=== PATIENT | female | born 1960 | race Caucasian/White ===

== ENCOUNTER 2023-11-20 17:45 | Emergency (ER) | payer MEDICARE, OTHER, SELFPAY ==
[2023-11-20 17:46] VITALS: BP 179/107; BMI 22.7
[2023-11-20 18:24] LABS: % Basophils 0.3 % (0-2); % Eosinophils 3.2 % (0-6); % Immature Granulocytes 0.2 % (0-0.5); % Lymphocytes 39.2 % (20.5-51.1); % Monocytes 6.1 % (1.7-9.3); Absolute Eosinophils 0.3 10^3/uL (0-0.7); Absolute Lymphocytes 3.5 10^3/uL (1.2-3.4); Absolute Monocytes 0.5 10^3/uL (0.1-0.6); Absolute Neutrophils 4.5 10^3/uL (1.4-6.5); Hemoglobin 12.5 g/dL (12.0-16.0); Mean Corp Hgb Conc. 34.7 g/dL (33.0-37.0); Mean Corpuscular Hgb 28.4 pg (27.0-31.0); Mean Corpuscular Volume 81.8 fL (81.0-99.0); Mean Platelet Volume 8.9 fL (7.4-10.4); Nucleated Red Blood Cells % 0 %; Platelet Count 354 10^3/uL (130-400); Red Cell Dist. Width 12.9 % (11.5-14.5); White Blood Cell Count 8.8 10^3/uL (4.8-10.8)
[2023-11-20 18:38] LABS: ALT (SGPT) 34 U/L (0-35); AST (SGOT) 38 U/L (14-36); Albumin 4.6 g/dl (3.5-5.0); Alkaline Phosphatase 86 U/L (38-126); Blood Urea Nitrogen 26 mg/dl (7-17); Calcium 9.9 mg/dl (8.4-10.2); Carbon Dioxide 25 mmol/L (22-30); Chloride 104 mmol/L (98-107); Estimated Creatinine Clearance 71 ml/min; Glucose 106 mg/dl (70-99); Potassium 3.6 mmol/L (3.5-5.1); Sodium 139 mmol/L (135-145); Total Bilirubin 0.5 mg/dl (0.2-1.3); Total Protein 7.4 g/dl (6.3-8.2); eGFR > 60.00
--- NOTE | 2023-11-20 18:42 | ED.GENMED ---
History of Present Illness
<Faizan Lundberg, DO - Last Filed: 11/20/23 22:15>
General
Chief Complaint: Chest Pain
Source: patient
Exam Limitations: none
Time Seen by Provider: 11/20/23 18:36
History of Present Illness
History of Present Illness:
See MDM
Past History
<Faizan Lundberg, DO - Last Filed: 11/20/23 22:15>
Past History
ED Past Medical History: Asthma
ED Past Surgical History: None
Social History
Tobacco: Non-smoker
Alcohol: Occasional
Personal:
Living: with family
Employment: Employed
Family History
Family History: Negative CAD or Sudden
Phy Exam
<Faizan Lundberg, DO - Last Filed: 11/20/23 22:15>
Physical Exam
Physical Exam:
See MDM
Scores
<Faizan Lundberg, DO - Last Filed: 11/20/23 22:15>
Heart Score for Chest Pain Patients
STEMI patient?: No
History: Slightly or Non-Suspicious
ECG: Normal
Age: >/= 65 years
Risk Factors: No Risk Factors
Troponin: </= Normal Limit
Heart Score for Chest Pain Patients: 2
Heart Score Risk: 2.5% MACE over next 6 weeks
<Rolando Lo, DO - Last Filed: 11/20/23 22:36>
Heart Score for Chest Pain Patients
Heart Score for Chest Pain Patients: 2
Heart Score Risk: 2.5% MACE over next 6 weeks
Course
<Faizan Lundberg, DO - Last Filed: 11/20/23 22:15>
Orders/Labs/Results
Orders:
Orders
11/20/23 17:45
Electrocardiogram (*1) Urgent
Reason for Study: Chest Pain
EKG- Treatment ONCE
11/20/23 18:17
Complete Blood Count/With Diff Urgent
Comprehensive Metabolic Panel Urgent
Troponin I Urgent
11/20/23 18:50
D-Dimer Urgent
11/20/23 20:22
CT Chest Pe Study Urgent
Comment:
Reason For Exam: Chest pain, tachycardic, SOB
Abnormal Lab Results
11/20/23 11/20/23
18:17 18:50
Hct 36.0 L %
(37.0-47.0)
Absolute Lymphs (auto) 3.5 H 10^3/uL
(1.2-3.4)
D-Dimer 0.91 H ug/mlFEU
(0.00-0.50)
BUN 26 H mg/dl
(7-17)
Glucose 106 H mg/dl
(70-99)
AST 38 H U/L
(14-36)
11/20/23 18:17
11/20/23 18:17
Vital Signs
Initial and Last Documented VS:
Initial Vital Signs
Temp Pulse Resp BP Pulse Ox
98 F 107 16 179/107 99
11/20/23 17:46 11/20/23 17:46 11/20/23 17:46 11/20/23 17:46 11/20/23 17:46
Last Documented Vital Signs
Temp Pulse Resp BP Pulse Ox
98 F 83 14 169/79 98
11/20/23 17:46 11/20/23 21:45 11/20/23 21:45 11/20/23 19:00 11/20/23 21:45
Jakylt;Rolando Lo, DO - Last Filed: 11/20/23 22:36>
Orders/Labs/Results
Orders:
Orders
11/20/23 17:45
Electrocardiogram (*1) Urgent
Reason for Study: Chest Pain
EKG- Treatment ONCE
11/20/23 18:17
Complete Blood Count/With Diff Urgent
Comprehensive Metabolic Panel Urgent
Troponin I Urgent
11/20/23 18:50
D-Dimer Urgent
11/20/23 20:22
CT Chest Pe Study Urgent
Comment:
Reason For Exam: Chest pain, tachycardic, SOB
Abnormal Lab Results
11/20/23 11/20/23
18:17 18:50
Hct 36.0 L %
(37.0-47.0)
Absolute Lymphs (auto) 3.5 H 10^3/uL
(1.2-3.4)
D-Dimer 0.91 H ug/mlFEU
(0.00-0.50)
BUN 26 H mg/dl
(7-17)
Glucose 106 H mg/dl
(70-99)
AST 38 H U/L
(14-36)
11/20/23 18:17
11/20/23 18:17
Vital Signs
Initial and Last Documented VS:
Initial Vital Signs
Temp Pulse Resp BP Pulse Ox
98 F 107 16 179/107 99
11/20/23 17:46 11/20/23 17:46 11/20/23 17:46 11/20/23 17:46 11/20/23 17:46
Last Documented Vital Signs
Temp Pulse Resp BP Pulse Ox
98 F 83 14 169/79 98
11/20/23 17:46 11/20/23 21:45 11/20/23 21:45 11/20/23 19:00 11/20/23 21:45
<Faizan Lundberg, DO - Last Filed: 11/20/23 22:15>
MDM/Problems Addressed
Differential Diagnosis Includes:
HPI and MDM Narrative:
63-year-old female presenting with intermittent left-sided chest pain. Patient states it started yesterday. It is not worse with exertion, food intake or position. She states it happens approximately 4 times an hour and last for only a second or
2. Denies significant prior medical history. She states it sometimes hurts when she takes a deep breath similar to bronchitis but states not as bad.
Heart rate shows mild tachycardia but she is clinically dehydrated. Patient acknowledges that she does not drink much water.
Given complaint and mild tachycardia, will obtain D-dimer. Given nonexertional symptoms, doubt ACS but will obtain troponin
Physical exam
General: Well appearing and non-toxic
HEENT: protecting airway. Dry mucous
Neck: appears supple
CV: No evidence of cyanosis. Mild tachycardia
Resp: No accessory muscle use. Lungs clear
Abd: Non-distended
Extremities: No deformities. No unilateral leg edema or erythema
Neuro: alert
Psych: Normal affect
Skin: Intact
Problems Addressed including Acute and Chronic Conditions affecting care:
1. Intermittent chest pain
Acuity: acute
Prognosis: stable
Details: Given nonexertional symptoms, doubt ACS. Given intermittent nature, doubt PE. Will obtain troponin and D-dimer.
Updates
Troponin negative. However, D-dimer elevated. Will obtain CT PE rule out
Differential Diagnosis (but not limited to): Musculoskeletal pain, esophageal spasm, noncardiac chest pain, pleurisy
Testing considered: Chest x-ray but will assess for D-dimer first
Drug therapy (if applicable): OTC meds, please see d/c instruction regarding Rx drugs
Amount and/or Complexity of Data Reviewed
Clinical info obtained from: Patient
External data reviewed: N/A
Labs I independently reviewed (but not limited to): Troponin and D-dimer
Radiology: The CT scan was personally and independently reviewed. In addition, official CT report reviewed.
Pulse Ox: not hypoxic
EKG independently reviewed: Sinus tachycardia, normal axis, no STEMI
Mini Shifter: Sinus rhythm
Critical Care: N/A
Risk of Complication:
Social Determinants of health: Good social support
Discussed with other providers: N/A
Escalation of Care includes Admit/Obs: After being observed in the Emergency Department, pt stable for discharge.
Occasional wrong word or 'sound a like' substitutions may have occurred due to the inherent limitations of voice recognition software. Read the chart carefully and recognize, using context, where substitutions have occurred.
<Faizan Lundberg, DO - Last Filed: 11/20/23 22:15>
*Critical Care Note
Total Time (30-74mins, 75-104mins- exclusive of procedures): Not Applicable
<Rolando Lo, DO - Last Filed: 11/20/23 22:36>
Update Note
Update Note:
IMPRESSION:
No evidence of pulmonary embolism.
No active pulmonary disease.
Incidental asymmetric enlargement of left lobe of the thyroid gland with mild rightward deviation of the trachea. No tracheal compression. Recommend follow-up nonemergent ultrasound.
Electronically signed by Joseph Camargo MD, 11/20/2023 10:26 PM
ED Attending Note
<Faizan Lundberg, DO - Last Filed: 11/20/23 22:15>
-
Portions of this chart may have been created with voice recognition software.� Occasional wrong word or��sound alike� substitutions may have occurred due to the inherent limitations of voice recognition software.
Discharge Plan
Departure
Patient Disposition: Home (Routine Discharge)
Date of Disposition: 11/20/23
Time of Disposition: 22:12
Patient with high blood pressure during this ER visit?: Yes
Discharge Problem:
Chest pain
Instructions: Chest Pain DCA Follow Up, BLOOD PRESSURE
Prescriptions:
No Action
Albuterol Sulfate Hfa
1 - 2 puff inhalation Q4H PRN (Reason: sob)
Symbicort Inhaler:
1 puff inhalation DAILY
cephalexin 500 MG capsule
500 mg PO TID Qty: 21 0RF
Referrals:
Louie Merlos MD [Family Provider] -
Zach Nunez MD [Active] -
Activity Restrictions/Additional Instructions:
Please return for any worsening symptoms.
You may return at any time if you have further concerns.
Please follow up with your doctor at the first available appointment, preferably this week. Please discuss your symptoms and your elevated blood pressure.
Please discuss with your family doctor the results of the CAT scan and the recommended follow-up ultrasound.
You were placed on the cardiac callback tracker. Someone from their office should call you in the next few days. If you do not hear from them in the next few days, please give them a call.
Thank you for choosing [facility].
Interventions
Interventions:
*Risk Screen - Suicide Last Done: 11/20/23 17:46
*Neglect/Abuse Screening Last Done: 11/20/23 17:46
ED- Fall Risk Assessment Last Done: 11/20/23 17:46
Discharge Date and Time
Print Language: ARABIC
[2023-11-20 18:48] LABS: Troponin I < 0.012 ng/ml
[2023-11-20 19:00] VITALS: BP 169/79
[2023-11-20 20:00] LABS: D-Dimer 0.91 ug/mlFEU (0.00-0.50)
== END 2023-11-20 22:47 | disposition home or self-care (01) ==
LOC: EMR 17:45
PROVIDERS: EMERGENCY PHYSICIAN Student in an Organized Health Care Education/Training Program; FAMILY PHYSICIAN Family Medicine
DX: R07.89 Other chest pain (principal); R00.0 Tachycardia, unspecified; R03.0 Elevated blood-pressure reading, without diagnosis of hypertension; R93.89 Abnormal findings on diagnostic imaging of other specified body structures; J45.909 Unspecified asthma, uncomplicated; E86.0 Dehydration; Z88.1 Allergy status to other antibiotic agents
CPT/HCPCS: 99285; 71275; 80053; 84484; 85025; 85379; 93005; Q9967

== ENCOUNTER → 2023-11-30 15:34 | Outpatient (REF) | payer MEDICARE, OTHER, SELFPAY | LOC: WDC 15:34 | PROVIDERS: ATTENDING PHYSICIAN Family Medicine | DX: Z12.31 Encounter for screening mammogram for malignant neoplasm of breast (principal) | CPT/HCPCS: 77063; 77067 ==

== ENCOUNTER → 2023-12-27 15:02 | Outpatient (REF) | payer MEDICARE, OTHER, SELFPAY | LOC: RAD 15:02 | PROVIDERS: ATTENDING PHYSICIAN Family Medicine; FAMILY PHYSICIAN Family Medicine | DX: E04.9 Nontoxic goiter, unspecified (principal) | CPT/HCPCS: 76536 ==

== ENCOUNTER → 2024-01-18 09:30 | Outpatient (REF) | payer MEDICARE, OTHER, SELFPAY ==
[2024-01-18 09:49] VITALS: BP 145/67; BP_SYST 112
== END ==
LOC: RADI 09:30
PROVIDERS: ATTENDING PHYSICIAN Family Medicine; FAMILY PHYSICIAN Family Medicine
DX: E04.1 Nontoxic single thyroid nodule (principal)
CPT/HCPCS: 88173; 10005

== ENCOUNTER → 2024-06-14 06:46 | Outpatient (REF) | payer MEDICARE, OTHER, SELFPAY | LOC: RAD 06:46 | PROVIDERS: ATTENDING PHYSICIAN Nurse Practitioner Family | DX: E04.1 Nontoxic single thyroid nodule (principal); E05.90 Thyrotoxicosis, unspecified without thyrotoxic crisis or storm | CPT/HCPCS: 78012; A9516 ==

== ENCOUNTER → 2024-06-21 08:19 | Outpatient (REF) | payer MEDICARE, SELFPAY | LOC: RAD 08:19 | PROVIDERS: ATTENDING PHYSICIAN Nurse Practitioner Family; FAMILY PHYSICIAN Family Medicine | DX: E05.90 Thyrotoxicosis, unspecified without thyrotoxic crisis or storm (principal); Z13.820 Encounter for screening for osteoporosis; Z91.89 Other specified personal risk factors, not elsewhere classified; M81.0 Age-related osteoporosis without current pathological fracture | CPT/HCPCS: 77080 ==

== ENCOUNTER 2024-09-11 06:00 | Day surgery (SDC) | payer MEDICARE, SELFPAY ==
[2024-08-31 09:29] LABS: Hematocrit 35.8 % (37.0-47.0); Hemoglobin 12.1 g/dL (12.0-16.0); Mean Corp Hgb Conc. 33.8 g/dL (33.0-37.0); Mean Corpuscular Hgb 29.2 pg (27.0-31.0); Mean Corpuscular Volume 86.5 fL (81.0-99.0); Mean Platelet Volume 9.4 fL (7.4-10.4); Platelet Count 322 10^3/uL (130-400); Red Blood Cell Count 4.14 10^6/uL (4.20-5.40); Red Cell Dist. Width 13.3 % (11.5-14.5); White Blood Cell Count 6.8 10^3/uL (4.8-10.8)
[2024-08-31 09:44] LABS: INR 0.87; PT 12.2 Sec (11.4-14.6)
[2024-08-31 09:45] LABS: APTT 25.2 Sec (23.4-35.0)
[2024-08-31 09:56] LABS: ALT (SGPT) 33 U/L (0-35); AST (SGOT) 32 U/L (14-36); Albumin 4.2 g/dl (3.5-5.0); Alkaline Phosphatase 54 U/L (38-126); Blood Urea Nitrogen 28 mg/dl (7-17); Calcium 10.4 mg/dl (8.4-10.2); Carbon Dioxide 27 mmol/L (22-30); Chloride 104 mmol/L (98-107); Glucose 95 mg/dl (70-99); Potassium 4.7 mmol/L (3.5-5.1); Sodium 140 mmol/L (135-145); Total Bilirubin 0.6 mg/dl (0.2-1.3); Total Protein 7.1 g/dl (6.3-8.2); eGFR > 60.00
[2024-08-31 14:04] VITALS: BMI 19.3
[2024-09-11] VITALS (8 sets, daily range): BP systolic 109–148; BP diastolic 42–76; BMI 19.3
[2024-09-11] MEDS: TYLENOL 1000 MG PO (07:05)
[2024-09-11] MEDS: HEPARIN 5000 UNITS SC (07:06)
[2024-09-11] MEDS: NEURONTIN 300 MG PO (07:06)
[2024-09-11] MEDS: NORMOSOL-R/PLASMALYTE-A 1000 IV (07:08)
--- NOTE | 2024-09-11 12:30 | OR.RPT ---
Operative Report
Operative Report
DATE OF OPERATION: September 11, 2024
PREOPERATIVE DIAGNOSIS: Left thyroid toxic nodule w/o crisis - E0510
POSTOPERATIVE DIAGNOSIS: Same
SURGEON: Yovani Garrett M.D.
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
ANESTHESIA: GET
ESTIMATED BLOOD LOSS: 1 cc
DRAINS: None
SPECIMEN: left total thyroid lobe and isthmus
FINDINGS: Left substernal goiter
COMPLICATIONS: None
PROCEDURE:
The patient was taken to the operating room and placed in the usual supine position. After adequate general endotracheal anesthesia was established, the patient�s neck was extended, prepped, and draped in the typical sterile fashion. A 4 cm
transcervical incision was made two fingerbreadths above the sternal notch. The skin incision was made with the #15 blade, which was taken through the skin into the subcutaneous tissue. The underlying platysma muscle was divided, and subplatysmal
flaps were created superiorly to the thyroid cartilage and inferiorly to the sternal notch. Strap muscles were identified and at the midline.
Attention was turned to the patient�s left thyroid lobe. The left thyroid lobe was mobilized medially. During this process, the left middle thyroid vein and inferior thyroid artery were dissected and ligated with Ligasure. There was a substernal
extension, which was delivered out of the mediastinum through the cervical incision. Next, the left superior pole was taken down by dissecting and transecting the superior pole vessels with a Ligasure. The left thyroid lobe was mobilized medially.
During this process, the left recurrent laryngeal nerve was identified and preserved throughout its entire course. The left superior parathyroid gland was identified and preserved. The left thyroid lobe with isthmus was resected off the trachea and
sent to the pathology department.
After obtaining adequate hemostasis, the strap muscle was approximated with #3-0 Vicryl in a running fashion, and the platysma muscles were reapproximated with #3-0 Vicryl in an interrupted fashion, and the skin was approximated with #4-0 Monocryl
in a running subcuticular fashion. Steri-strips and sterile dressings were placed. The patient tolerated the procedure well. The final instrument, needle, and sponge counts were correct.
== END 2024-09-11 11:20 | disposition home or self-care (01) ==
LOC: SDS 06:00
PROVIDERS: ATTENDING PHYSICIAN Surgery; FAMILY PHYSICIAN Family Medicine
DX: E05.00 Thyrotoxicosis with diffuse goiter without thyrotoxic crisis or storm (principal)
CPT/HCPCS: 60271; 88307; 36415; 80053; 85027; 85610; 85730; 93005; C1776

== ENCOUNTER → 2024-10-16 08:13 | Outpatient (REF) | payer MEDICARE, SELFPAY | LOC: RCS 08:13 | PROVIDERS: ATTENDING PHYSICIAN Family Medicine | DX: R55 Syncope and collapse (principal) | CPT/HCPCS: 93225; 93226 ==

== ENCOUNTER → 2024-12-04 08:50 | Outpatient (REF) | payer MEDICARE, SELFPAY | LOC: WDC 08:50 | PROVIDERS: ATTENDING PHYSICIAN Family Medicine | DX: Z12.31 Encounter for screening mammogram for malignant neoplasm of breast (principal) | CPT/HCPCS: 77063; 77067 ==